=== PATIENT | female | born 1985 | race Caucasian/White ===

== ENCOUNTER → 2016-07-05 | Outpatient (CLI) | payer MEDICAID | END | disposition home or self-care (01) | LOC: RAD 16:40 | PROVIDERS: ATTEND Family Medicine | DX: M25.561 Pain in right knee (principal); M25.562 Pain in left knee ==

== ENCOUNTER 2019-07-06 10:06 | Emergency (ER) | payer MEDICAID ==
[~2019-07-06] VITALS: Ht 170.2 cm; Wt 87.0 kg
[2019-07-06 10:10] VITALS: BP 163/113
[2019-07-06] MEDS ORDERED: LIDOCAINE-MPF 1%, 5ML ONE (10:53)
[2019-07-06] MEDS ORDERED: DIPH,PERTUSS(ACELL),TET VAC/PF 0.5 ML IM-VACC ONE ×2 (10:53→11:00)
[2019-07-06] MEDS ORDERED: NEOSPORIN OINT. PKT 1 PACKET ONE (10:53)
[2019-07-06] MEDS ORDERED: BACITRACIN ZINC OINT 500U/GM, 0.9 GM TP ONE (11:00)
--- NOTE | 2019-07-06 11:01 | NUR ---
EMT AT BEDSIDE- WOUND IRRIGATED WITH NS BLEEDING MINIMAL, TISSUE BLANCHABLE
[2019-07-06] MEDS ORDERED: LIDOCAINE-MPF 1%, 5ML INFIL ONE (11:30)
[2019-07-06] MEDS ORDERED: NEOSPORIN OINT. PKT 1 PACKET TP ONE (11:30)
== END 2019-07-06 11:46 | disposition home or self-care (01) ==
LOC: ED 10:46
DX: S21.011A Laceration without foreign body of right breast, initial encounter (principal); W54.0XXA Bitten by dog, initial encounter; Y93.89 Activity, other specified; Y92.830 Public park as the place of occurrence of the external cause; Y99.8 Other external cause status
CPT/HCPCS: 12001; 90471; 90715; 99283